=== PATIENT | male | born 1960 | race Caucasian/White ===

== ENCOUNTER 2018-07-06 15:14 | Emergency (ER) | payer OTHER ==
[~2018-07-06] VITALS: Ht 177.8 cm; Wt 88.5 kg
--- NOTE | ~2018-07-06 | EKG ---
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
[~2018-07-06 15:14] MED LIST: NOHOMEMEDICATIONS; NORCO 5-325 TA1 EACH PO
[2018-07-06] MEDS ORDERED: ZOLOFT50 MG PO (15:21)
[2018-07-06] MEDS ORDERED: NORFLEX100 MG PO (16:28)
[2018-07-06] MEDS ORDERED: MOBIC15 MG PO (16:28)
[2018-07-06 16:43] VITALS: BP 167/99
== END 2018-07-06 16:43 | disposition home or self-care (01) ==
LOC: ER 15:14
DX: S29.011A Strain of muscle and tendon of front wall of thorax, initial encounter (principal); Z88.6 Allergy status to analgesic agent